=== PATIENT | female | born 1965 | race Caucasian/White ===

== ENCOUNTER 2018-05-27 12:25 | Emergency (ER) | payer MEDICAID, OTHER ==
[~2018-05-27] VITALS: Ht 157.5 cm; Wt 81.6 kg
[2018-05-27] MEDS ORDERED: HYDROMORPHONE 1 MG/1 ML DISP.SYRIN IV ONE ×3 (12:30→15:00)
[2018-05-27] MEDS ORDERED: IV NORMAL SALINE 500 ML BAG IV ONE (12:30)
[2018-05-27] MEDS ORDERED: ONDANSETRON 4 MG/2 ML VIAL IV ONE (12:30)
[2018-05-27] MEDS ORDERED: DICY20TA11 PO (12:32)
[2018-05-27] MEDS ORDERED: HYDROMORPHONE 1 MG/1 ML DISP.SYRIN ONE ×3 (12:43→14:58)
[2018-05-27] MEDS ORDERED: ONDANSETRON 4 MG/2 ML VIAL ONE (12:43)
[2018-05-27 12:44] LABS: BASOPHILS % (AUTO) 0.6 % (0.0-2.0); EOSINOPHILS % (AUTO) 0.2 % (0.0-7.0); HEMATOCRIT 44.9 % (31.2-41.9); HEMOGLOBIN 15.4 g/dL (10.9-14.3); LYMPHOCYTES # (AUTO) 1.4 K/uL (20.0-40.0); LYMPHOCYTES % (AUTO) 18.4 % (20.5-51.5); MEAN CORPUSCULAR HEMOGLOBIN 31.7 uug (24.7-32.8); MEAN CORPUSCULAR HGB CONC 34 g/dL (32.3-35.6); MEAN CORPUSCULAR VOLUME 92.6 fL (75.5-95.3); MONOCYTES # (AUTO) 0.3 K/uL (2.0-10.0); MONOCYTES % (AUTO) 3.8 % (0.0-11.0); NEUTROPHILS # (AUTO) 5.7 K/uL (1.8-8.9); PLATELET COUNT (AUTO) 163 K/uL (179-408); RED BLOOD CELL COUNT(AUTO) 4.85 MIL/uL (3.63-4.92); WHITE BLOOD COUNT (AUTO) 7.4 K/uL (3.8-11.8)
[2018-05-27 12:46] LABS: *BILIRUBIN,URIN NEGATIVE (NEGATIVE); *BLOOD, URINE Trace-lysed (NEGATIVE); *CLARITY,URINE CLEAR (CLEAR); *COLOR,URINE YELLOW (YELLOW); *KETONES,URINE TRACE (NEGATIVE); *UROBILINOGEN,URINE 0.2 E.U./dl (NORMAL); LEUKOCYTE ESTERASE ,URINE NEGATIVE (NEGATIVE); NITRITE, URINE NEGATIVE (NEGATIVE); PH,URINE 8.5 (5.0-8.0); UGLUCOSE NEGATIVE (NEGATIVE)
[2018-05-27 12:52] LABS: CREATININE 0.7 mg/dL (0.6-1.3); POTASSIUM 3.8 mmol/L (3.5-5.1)
[2018-05-27 12:58] LABS: BACTERIA,URINE FEW /HPF (NONE SEEN); BILIRUBIN,DIRECT 0.3 mg/dL (0.0-0.2); BILIRUBIN,TOTAL 1.2 mg/dL (0.2-1.0); RBC,URINE 0-3 /HPF (0-3); SQUAMOUS EPITHELIAL CELL,UR FEW /HPF (NONE SEEN); WBC,URINE 0-3 /HPF (0-3)
[2018-05-27] MEDS ORDERED: IOHEXOL 300MG/ML 100 ML INFUS..BTL ONE (14:32)
[2018-05-27] MEDS ORDERED: SWABABLE VALVE TRANSFER SET EA MC ONE (14:32)
[2018-05-27] MEDS ORDERED: NORMAL SALINE FLUSH 10 ML DISP.SYRIN ONE (14:32)
--- NOTE | 2018-05-27 15:13 | NUR ---
Patient discharged to home in stable conditon. Written and verbal after care instructions given. Patient verbalizes understanding of instructions.pt walks in steady gait. pt accompanied by . pt not driving. Addendum: 05/27/18 at 1517 by MILY the copy of all the images provided for pt for follow up.
[2018-05-27 15:18] VITALS: BP 131/89
== END 2018-05-27 15:19 | disposition home or self-care (01) ==
LOC: ER 12:25
DX: B19.20 Unspecified viral hepatitis C without hepatic coma (principal); R06.02 Shortness of breath; Z90.710 Acquired absence of both cervix and uterus; Z79.2 Long term (current) use of antibiotics
CPT/HCPCS: 36415; 71045; 74177; 80048; 80076; 81001; 83690; 85025; 96361; 96374; 96375 ×2; 96376; 99284; J1170 ×3; J2405; Q9967; A4663; J3490; J7030

== ENCOUNTER 2018-09-25 15:16 | Emergency (ER) | payer MEDICAID ==
[~2018-09-25] VITALS: Ht 165.1 cm; Wt 88.5 kg
[~2018-09-25 15:16] MED LIST: DICY20TA11 PO
--- NOTE | 2018-09-25 15:50 | NUR ---
PT IS IN ROOM #2B. DR RAHMAN EVALUATED THE PT.
[2018-09-25] MEDS ORDERED: ONDANSETRON 4 MG/2 ML VIAL ONE (15:56)
[2018-09-25] MEDS ORDERED: MORPHINE SULFATE 4 MG/1 ML DISP.SYRIN ONE (15:56)
[2018-09-25 16:00] LABS: BASOPHILS % (AUTO) 0.3 % (0.0-2.0); EOSINOPHILS % (AUTO) 0.3 % (0.0-7.0); HEMATOCRIT 44.7 % (31.2-41.9); HEMOGLOBIN 14.9 g/dL (10.9-14.3); LYMPHOCYTES # (AUTO) 1.4 K/uL (20.0-40.0); LYMPHOCYTES % (AUTO) 16.5 % (20.5-51.5); MEAN CORPUSCULAR HGB CONC 33 g/dL (32.3-35.6); MEAN CORPUSCULAR VOLUME 92.9 fL (75.5-95.3); MONOCYTES # (AUTO) 0.3 K/uL (2.0-10.0); MONOCYTES % (AUTO) 3.5 % (0.0-11.0); NEUTROPHILS # (AUTO) 6.8 K/uL (1.8-8.9); NEUTROPHILS % (AUTO) 79.4 % (38.5-71.5); PLATELET COUNT (AUTO) 166 K/uL (179-408); RED BLOOD CELL COUNT(AUTO) 4.81 MIL/uL (3.63-4.92); WHITE BLOOD COUNT (AUTO) 8.6 K/uL (3.8-11.8)
[2018-09-25] MEDS ORDERED: MORPHINE SULFATE 4 MG/1 ML DISP.SYRIN IV ONE (16:00)
[2018-09-25] MEDS ORDERED: IV NORMAL SALINE 1000 ML BAG IV ONE (16:00)
[2018-09-25] MEDS ORDERED: ONDANSETRON IV *ER 4 MG/2 ML VIAL IV ONE (16:00)
[2018-09-25 16:05] LABS: CREATININE 0.7 mg/dL (0.6-1.3); POTASSIUM 4.1 mmol/L (3.5-5.1)
[2018-09-25 16:10] LABS: BILIRUBIN,DIRECT 0.1 mg/dL (0.0-0.2); BILIRUBIN,TOTAL 0.3 mg/dL (0.2-1.0); TOTAL PROTEIN, SERUM 8.1 g/dL (6.4-8.2)
[2018-09-25 16:16] LABS: ETHANOL < 3 MG/DL (0-0)
[2018-09-25] MEDS ORDERED: HYDROMORPHONE 1 MG/1 ML DISP.SYRIN IV ONE (17:00)
[2018-09-25] MEDS ORDERED: HYDROMORPHONE 1 MG/1 ML DISP.SYRIN ONE (17:04)
--- NOTE | 2018-09-25 18:11 | NUR ---
PT WAS D/C'd TO HOME. D/C INSTRUCTIONS GIVEN TO THE PT.
[2018-09-25 18:12] VITALS: BP 136/79
== END 2018-09-25 18:21 | disposition home or self-care (01) ==
LOC: ER 15:16
DX: R10.13 Epigastric pain (principal); R11.10 Vomiting, unspecified; J45.909 Unspecified asthma, uncomplicated; K21.9 Gastro-esophageal reflux disease without esophagitis; I50.9 Heart failure, unspecified; Z90.710 Acquired absence of both cervix and uterus; Z79.2 Long term (current) use of antibiotics
CPT/HCPCS: 36415; 71045; 74176; 80048; 80076; 83690; 84484; 85025; 85730; 93005; 96361; 96374; 96375; 99284; G0480; J1170; J2270; J2405; 70030-TC; A4663; J7030

== ENCOUNTER 2019-04-02 04:08 | Emergency (ER) | END 2019-04-02 06:27 | disposition home or self-care (01) | DX: F11.23 Opioid dependence with withdrawal (principal); M25.552 Pain in left hip; M54.5 Low back pain; M25.551 Pain in right hip; I50.9 Heart failure, unspecified; J45.909 Unspecified asthma, uncomplicated; K21.9 Gastro-esophageal reflux disease without esophagitis; Z90.710 Acquired absence of both cervix and uterus; Z79.899 Other long term (current) drug therapy | CPT/HCPCS: 36415; 74021; 80048; 80076; 82550; 83690; 85025; 93005; 96361; 96374; 96375; 99284; G0480 ×2; J2060; J2405; J3490 ==

== ENCOUNTER 2019-09-01 23:22 | Emergency (ER) | payer MEDICAID ==
[~2019-09-01] VITALS: Ht 165.1 cm; Wt 90.7 kg
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
--- NOTE | 2019-09-01 23:38 | NUR ---
DR. VICTOR AT BEDSIDE FOR MSE.
[2019-09-01] MEDS ORDERED: KETOROLAC TROMETHAMINE 30 MG INJ IM ONE (23:45)
[2019-09-01] MEDS ORDERED: HYDROMORPHONE HCL 2 MG TABLET PO ONE (23:45)
[2019-09-01] MEDS ORDERED: KETOROLAC TROMETHAMINE 30 MG INJ ONE (23:48)
[2019-09-01] MEDS ORDERED: HYDROMORPHONE HCL 2 MG TABLET ONE (23:49)
--- NOTE | 2019-09-02 00:39 | NUR ---
Patient discharged to home in stable condition. Written and verbal after care instructions given. Patient verbalizes understanding of instructions. Stressed follow up or return to ER for worsening s/s. A/O x4. Pt in stable condition. No s/s of distress. No SOB noted. All belongings with pt. Pt ambulated with walker. Instructed pt not to drive Pt's will drive pt home.
[2019-09-02 00:45] VITALS: BP 112/62
== END 2019-09-02 00:39 | disposition home or self-care (01) ==
LOC: ER 23:25
DX: G89.29 Other chronic pain (principal); M54.5 Low back pain; R03.0 Elevated blood-pressure reading, without diagnosis of hypertension
CPT/HCPCS: 72170; 72220; 96372; 99284; J1885; A4663